=== PATIENT | female | born 1950 | race Caucasian/White ===

== ENCOUNTER 2017-10-08 06:46 | Day surgery (SDC) | payer OTHER ==
--- NOTE | 2017-09-30 14:09 | HP ---
Admitting History and Physical - Primary Care Physician PCP: Antwan Byers - Admission Chief Complaint: Right breast atypia History of Present Illness: 66 year old postmenapausal female with mammogram showing indeterminant calcifications upper outer quadrant right breast . Birad 4. Stereotactic core biopsy 09/04/2017 right breast showed atypia ,advised excision. History Source: Patient Limitations to Obtaining History: No Limitations - Past Medical History Cardiovascular: Yes: HTN, Hyperlipdemia Endocrine: Yes: Diabetes Mellitus - Past Surgical History Past Surgical History: Yes: (x2) - Smoking History Smoking history: Never smoked Have you smoked in the past 12 months: No - Alcohol/Substance Use Hx Alcohol Use: Yes (one per month) Home Medications - Allergies Allergies/Adverse Reactions: Allergies Allergy/AdvReac Type Severity Reaction Status Date / Time Penicillins Allergy Verified 09/30/17 14:07 Sulfa (Sulfonamide Allergy Verified 09/30/17 14:08 Antibiotics) - Home Medications Home Medications (free text): ramipril,metformin restor, baby aSA Family Disease History - Family Disease History Family Disease History: CA: Grandparent (mat GM breast and pancreatic ca 70/90) , Mother (CRC 91) Other Family History: mat aunt lung ca 68 Physical Examination Constitutional: Yes: Well Nourished Breast(s): Yes: Other (symmetrical no palpable masses or adenopathy bilaterally post bx changes right breast) Problem List - Problems (1) Flat epithelial atypia of right breast Code(s): N60.81 - OTHER BENIGN MAMMARY DYSPLASIAS OF RIGHT BREAST Assessment/Plan Right breast wide excision with mammogram needle localization
[2017-10-01 13:22] VITALS: BMI 27.8
[2017-10-08] MEDS ORDERED: LIDOCAINE HCL 1%, 10 MG/ML (20ML VIAL) ONE (07:48)
[2017-10-08] MEDS ORDERED: ISOSULFAN BLUE 10 MG/ML VIAL SQ ONE (08:52)
[2017-10-08] MEDS ORDERED: PROPOFOL 20 ML ONE (09:38)
[2017-10-08] MEDS ORDERED: CLINDAMYCIN PHOSPHATE 600 MG/4 ML VIAL ONE (09:58)
[2017-10-08] MEDS ORDERED: BUPIVACAINE HCL 0.25% 125 MG/50 ML VIAL ONE (10:09)
[2017-10-08] MEDS ORDERED: LIDOCAINE HCL 1%, 10 MG/ML (50 mL VIAL) IJ ONE (10:09)
[2017-10-08] MEDS ORDERED: ePHEDrine SULFATE 50 MG/1 ML AMPULE ONE (10:11)
[2017-10-08] MEDS ORDERED: DESFLURANE GAS 240 ML BOTTLE IH ONE (10:17)
[2017-10-08] MEDS ORDERED: BUPIVACAINE HCL/PF 0.25% (2.5MG/ML) 10 ML VIAL IJ ONE (10:27)
[2017-10-08] MEDS ORDERED: ONDANSETRON 4 MG/2 ML VIAL ONE (10:28)
[2017-10-08] MEDS ORDERED: DEXAMETHASONE SOD PHOSPHATE 4 MG/1 ML VIAL ONE (10:28)
[2017-10-08] MEDS ORDERED: KETOROLAC TROMETHAMINE 30 MG/1 ML VIAL IVPUSH PRN (10:44)
[2017-10-08] MEDS ORDERED: ONDANSETRON 4 MG/2 ML VIAL IVPUSH PRN (10:44)
[2017-10-08] MEDS ORDERED: DEXTROSE 5%-0.45% SALINE 1,000 ML IV SCH (10:45)
[2017-10-08] MEDS ORDERED: oxyCODONE HCL 5 MG TABLET PO PRN (10:53)
[2017-10-08] MEDS ORDERED: oxyCODONE HCL 5 MG TABLET ONE (11:28)
[2017-10-08 11:33] VITALS: TEMP 98.8
--- NOTE | 2017-10-08 11:44 | OP ---
DATE OF OPERATION: 10/08/2017 PREOPERATIVE DIAGNOSIS: Right breast atypia. POSTOPERATIVE DIAGNOSIS: Right breast atypia. PROCEDURE: Right mammographically localized partial mastectomy. ANESTHESIA: General. ATTENDING SURGEON: Brent Rm MD PARTS PERSON: VANDANA Tavares ESTIMATED BLOOD LOSS: Minimal. COMPLICATIONS: None. DESCRIPTION OF PROCEDURE: The patient was made aware of the risks and benefits of the procedure and consented. She was placed in the supine position. Preoperatively, the patient went to the radiology suite where a needle was placed next to the index lesion. The patient was then placed in supine position. After general anesthesia was induced, the patient was intubated. The operative site was prepped and draped in the usual sterile fashion. Then of 1% lidocaine was used for the preemptive anesthesia. A curvilinear periareolar incision was then made using electrocautery. Thick skin flaps were made. The needle was drawn through the puncture site and the wire through the bone. Tissues were intraoperatively excised and submitted with a short suture superior and long suture lateral. Specimen radiograph confirmed the presence of the index lesion, which was then submitted to Pathology. The wound was copiously irrigated with normal saline. Hemostasis maintained by pressure with electrocautery. The wound was then closed with a deep layer of Vicryl followed by a running subcuticular of 4-0 Monocryl. Dermabond and a compression roll were then applied, and the patient, having tolerated the procedure well, was transferred to the recovery room in excellent condition. BRENT SUMMERS M.D. [id number]
[2017-10-08 12:06] VITALS: BP 108/50; PULSE 61
--- NOTE | 2017-10-10 13:14 | PATH ---
Surgical Pathology Report Patient Name: WAI PEREIRA [facility]. Rec. #: [id number] /Age/Gender: 1950 (Age: 66) / F Account: [id number] Location: [facility] AMBULATORY Taken: 10/08/2017 Received: 10/08/2017 Reported: 10/10/2017 Physicians: Antwan Byers M.D. 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 PRIOR BIOPSY SITE CHANGES ARE PRESENT. Electronically Signed Karissa Gr M.D. Gross Description Received in formalin, labeled "right breast wide excision," is a 4.5 x 3.6 x 2.2 cm. byrne-yellow, irregular, portion of fibroadipose tissue with a needle localization wire present. There is a short suture marking the superior aspect and a long suture marking the lateral aspect, per the surgeon. There is no skin present. The specimen is inked as follows: superior and lateral blue; inferior green; medial yellow; anterior red; deep black. The specimen is serially sectioned from superior to inferior. Sectioning reveals a 1.0 x 1.0 x 0.9 cm focus of firm fibrous tissue with associated hemorrhage, consistent with a previous biopsy site. The focus abuts the anterior margin and is 0.1 cm from the lateral margin. The remaining margins appear clear of the previous biopsy site. The remaining breast parenchyma displays multifocal dense white fibrous tissue. [employer] sections are submitted in 10 cassettes as follows: 1-superior margin; 6-8-[id number] submitted previous biopsy site (each with lateral, anterior and deep margins); 6-medial margin; 5-9-qezgnnbqwh fibrous tissue (each with anterior and deep margins); 10-inferior margin. Time to formalin fixation: 3 minutes Total formalin fixation time: Approximately 13 hours. /10/08/201710/08/2017
== END 2017-10-08 12:15 | disposition home or self-care (01) ==
LOC: FASU 06:46
PROVIDERS: ATTEND Surgery Surgical Oncology
PROC: 0HBT0ZZ Excision of Right Breast, Open Approach (ICD-10-PCS; principal; 2017-10-08 10:00)
DX: N60.81 Other benign mammary dysplasias of right breast (principal); I10 Essential (primary) hypertension; E78.5 Hyperlipidemia, unspecified; E11.9 Type 2 diabetes mellitus without complications
CPT/HCPCS: 19281; 82962; 88307-TC; 94760